=== PATIENT | male | born 1940 | race Caucasian/White ===

== ENCOUNTER 2021-02-07 13:37 | Outpatient (CLI) | payer MEDICARE, SELFPAY ==
--- NOTE | 2021-02-07 14:44 | ECG_ITS ---
Measurements Intervals [place] Rate: 58 P: 57 ME: 204 QRS: -9 QRSD: 164 T: 28 QT: 445 QTc: 439 Interpretive Statements SINUS BRADYCARDIA BORDERLINE AV CONDUCTION DELAY RIGHT BUNDLE BRANCH BLOCK BASELINE ARTIFACT- I, II, III, AVR, AVL, AVF, V4-V6 ABNORMAL ECG Electronically Signed On 02-07-2021 15:00:25 CDT by Janusz Alcazar D.O.
[2021-02-07 16:23] LABS: Anion Gap 6 mmol/L (8-16); Blood Urea Nitrogen 39 mg/dL (9-20); Carbon Dioxide 31 mmol/L (22-30); Chloride 105 mmol/L (98-107); Estimated Glomerular Filt Rate 53; Glucose 114 mg/dL (75-110); Potassium 4.1 mmol/L (3.4-5.0); Sodium 142 mmol/L (137-145)
== END 2021-02-07 13:38 | disposition home or self-care (01) ==
PROVIDERS: Anesthesiology; Visit Provider Urology
DX: Z79.899 Other long term (current) drug therapy (principal); I10 Essential (primary) hypertension; Z01.818 Encounter for other preprocedural examination; I45.9 Conduction disorder, unspecified; I45.10 Unspecified right bundle-branch block
CPT/HCPCS: 36415; 80048; 93005

== ENCOUNTER → 2021-02-08 00:26 | Outpatient (CLI) | payer MEDICARE, SELFPAY ==
[2021-02-08 16:23] LABS: SARS-CoV-2 RNA PCR Negative
== END ==
PROVIDERS: Visit Provider Urology
DX: Z01.812 Encounter for preprocedural laboratory examination (principal); Z20.822 Contact with and (suspected) exposure to COVID-19
CPT/HCPCS: C9803; U0003; U0005

== ENCOUNTER 2021-02-09 02:19 | Day surgery (SDC) | payer MEDICARE, SELFPAY ==
[2021-02-07 14:04] VITALS: BMI 23.8
[2021-02-09] VITALS (10 sets, daily range): BP systolic 133–180; BP diastolic 50–92; PULSE 53–87; RESP 12–19; TEMP 36.1–36.2; O2SAT 53–100
--- NOTE | ~2021-02-09 | XR_ITS ---
EXAMINATION: XR retrograde pyelogram BI EXAM DATE: 02/09/2021 12:33 INDICATION: Bilateral retrograde pyelogram. Hydronephrosis. TECHNIQUE: Fluoroscopy used during XR retrograde pyelogram BI performed by Dr. Rg Wall MD . Total fluoroscopic time of 0.3 minutes. A total of 88 images obtained for the exam. The DAP for this procedure was 405 radcm2. Cine run(s) available for review. FINDINGS: The left ureter was cannulated 1st, injected. There is moderate left-sided hydroureteronep hrosis. No focal left ureteral strictures. Right ureter then cannulated and injected, ureter and jennifer l collecting system was unremarkable. Correlate with procedure note. IMPRESSION: Moderate left hydroureteronephrosis. Reviewed, dictated and finalized at location A.
--- NOTE | 2021-02-09 06:56 | PM.IMHP ---
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 Surveillance cystoscopy a couple days ago revealed 2 small papillary recurrences. Chief Complaint: Bladder tumor Review of Systems Cardiovascular: Cardiovascular: Denies chest pain, Denies lightheadedness, Denies palpitations and Denies dyspnea Respiratory: Respiratory: Denies dyspnea Gastrointestinal: Gastrointestinal: Denies diarrhea, Denies nausea and Denies vomiting Genitourinary: Genitourinary: Denies hematuria and Denies dysuria Endocrine: Endocrine: Denies palpitations COUNTS INCLUDE 234 BEDS AT THE [facility] Social History Social History Smoking packs per day: 1 Smoking cigarettes per day: 20.0 Years smoked: 15 Smoking pack-years: 15.00 Smoking status: Former smoker Tobacco type: cigarettes Smoking end date: 05/11/70 Alcohol intake: current Drinks per week: 7 Substance use: never Living arrangements: with family Additional living arrangements comments: Spiritual care concerns: No Meds Home Medications and Allergies Home Medications Medication Instructions Recorded Confirmed Type amlodipine-benazepril 1 cap PO QAM 02/07/21 02/07/21 History finasteride 5 mg PO DAILY 02/07/21 02/07/21 History hydrochlorothiazide 25 mg PO QAM 02/07/21 02/07/21 History sertraline 100 mg PO QAM 02/07/21 02/07/21 History Allergies Allergy/AdvReac Type Severity Reaction Status Date / Time propoxyphene Allergy Unknown HALLUCINATI Verified 02/07/21 13:58 ONS tramadol Allergy Unknown NAUSEA AND Verified 02/07/21 13:58 VOMITING codeine AdvReac Mild NAUSEA AND Verified 02/07/21 13:58 VOMITING Exam Const: General: no acute distress Resp: Effort & Inspection: normal respiratory effort GI: Inspection: non-distended GI Palp: No abdominal tenderness and No Guarding due to palpation present (GI) Auscultation: normal bowel sounds Assessment and Plan Assessment and plan (1) Bladder tumor: Code(s): D49.4 - Neoplasm of unspecified behavior of bladder Status: Acute Assessment and Plan: Cystoscopy with bilateral retrograde pyelography, TURBT Mitomycin-C bladder installation
--- NOTE | 2021-02-09 06:58 | WPDHPUPDATE1 ---
History and Physical Update Update Date/Time: 02/09/21 06:58 History and Physical has been reviewed, including an updated exam of the patient. There are NO changes in the patient's condition. Risks, benefits, and alternatives have been discussed and questions answered. Patient agrees to proceed with procedure.
[2021-02-09] MEDS: LACTATED RINGERS 1,000 ML 30 ML IV CONT ×2 (09:37→12:35)
--- NOTE | 2021-02-09 10:15 | WPDANESEPPF ---
Anes - Initial Pre Proc Eval Procedure: Operation Date: 02/09/21 11:00 Proposed Procedures p Trans Urethral Resection Bladder Tumor with Mitomycin C Instillation - Rg Wall MD s Cystoscopy, Bilateral Retrograde Pyelograms - Rg Wall MD Date/Time: 02/09/21 10:15 Surgeon: Rg Wall MD Pre Op Diagnosis: hx bladder CA, bladder tumors Patient Data Age: 80 Gender: M Height: 5 ft 8.5 in Weight: 70.8 kg Last Vital Signs Temp 97.1 F L 02/09/21 10:11 Pulse 53 L 02/09/21 10:11 Resp 18 02/09/21 10:11 BP 138/50 L 02/09/21 10:11 Pulse Ox 53 L 02/09/21 10:11 Allergies Allergy/AdvReac Type Severity Reaction Status Date / Time propoxyphene Allergy Unknown HALLUCINATI Verified 02/09/21 10:06 ONS tramadol Allergy Unknown NAUSEA AND Verified 02/09/21 10:06 VOMITING codeine AdvReac Mild NAUSEA AND Verified 02/09/21 10:06 VOMITING Home Medications Medication Instructions Recorded Confirmed Type amlodipine-benazepril 1 cap PO QAM 02/07/21 02/09/21 History finasteride 5 mg PO DAILY 02/07/21 02/09/21 History hydrochlorothiazide 25 mg PO QAM 02/07/21 02/09/21 History sertraline 100 mg PO QAM 02/07/21 02/09/21 History Patient hx anesthesia problems: none Family hx anesthesia problems: none [facility] Past Medical History Medical History (Updated 02/09/21 @ 10:15 by Jaiden Delgado MD) Hyperlipidemia Hypertension ISMAEL (obstructive sleep apnea) Social History Social History Smoking packs per day: 1 Smoking cigarettes per day: 20.0 Years smoked: 15 Smoking pack-years: 15.00 Smoking status: Former smoker Tobacco type: cigarettes Smoking end date: 05/11/70 Alcohol intake: current Drinks per week: 7 Substance use: never Living arrangements: with family Additional living arrangements comments: Spiritual care concerns: No Anes - Eval Final PreProcedure Day of Procedure 02/09/21 10:15 Patient weight: normal Heart: regular rate and rhythm Lungs: clear to auscultation Airway: Mallampati scale class II Neurological: alert and oriented Last oral intake: >/= 8 hours ASA classification: III Emergent: no Anesthetic plan: proceed Anesthesia type and monitoring: general LMA and standard monitoring Informed Consent: The patient's anesthetic plan and its attendant risks and benefits were discussed with the patient/family/POA. Questions were solicited and answers provided to the satisfaction of the patient/family/POA.
[2021-02-09] MEDS: ceFAZolin 2 GM/D5W 50 ML 2 GM/50 ML BAG IVPB (11:55)
[2021-02-09] MEDS: LIDOCAINE HCL 2% GEL UROJET 10 ML PKG MUCOUS MEM (12:11)
--- NOTE | 2021-02-09 12:35 | PM.PROC ---
Procedure Note - Detailed Date of procedure: 02/09/21 Pre-op diagnosis: bladder tumors Post-op diagnosis: same Procedure performed: 1. TURBT (medium) 2. Cysto., bilateral RPG Description of procedure: Patient brought to the office where he has prepped and draped in routine sterile fashion while in dorsal lithotomy position after the uneventful induction of a general LMA anesthetic. 2% xylocaine jelly was introduced intraurethrally. Twenty-four F resectoscope was placed in his bladder. He has 2 collections of papillary neoplasm 1 in the right posterior lateral wall and another in the midline posterior wall. These were resected in their entirety with an attempt made to include detrusor muscle for pathological evaluation of invasion. The base and periphery of cauterized with the rollerball. I then replaced the resectoscope with a 22 F cystoscope. Eight F bulb tip catheter was used to obtain bilateral retrograde pyelograms. There is no apparent filling defects or points of obstruction on either side. Cystoscope was removed and an 18 F urethral catheter was placed to drainage. Patient tolerates procedure well was taken recovery in good condition Anesthesia: GLMA Surgeon: Rg Wall MD Lotus Notes Developer: None Drains: Yes (18F Rojo) Packing: No Pathology: yes Complications: No immediate complications Condition: stable Disposition: PACU
--- NOTE | 2021-02-09 12:38 | PM.PROC ---
Procedure Note - Detailed Date of procedure: 02/09/21 Pre-op diagnosis: bladder tumors Post-op diagnosis: same Procedure performed: Mitomycin-C installation Description of procedure: With the patient in the supine position, a 16F Rojo catheter is placed using sterile technique. Using a protective facemask, gown and double layer of gloves Gemcitabine 2gm in 100cc saline is administered through the catheter/into the bladder. The catheter is then plugged. Patient was instructed to lie supine x20min, then to roll both the left and right x20 min. each. Total dwell time will be 60 min., after which the bladder will be drained and catheter removed. Surgeon: Rg Wall MD Estimated blood loss (mL): 0 Drains: No Packing: Yes Pathology: yes Complications: No immediate complications Condition: stable Disposition: PACU
[2021-02-09] MEDS: fentaNYL CITRATE INJ (*CRX) 100 MCG/2 ML VIAL 25 MCG IV PUSH ×8 (12:39→13:32)
[2021-02-09] MEDS: ONDANSETRON INJ 4 MG/2 ML VIAL IV PUSH (14:26)
--- NOTE | 2021-02-09 14:38 | SUR.PHASEII ---
DR. FOUNTAIN CAME TO SEE PT. ORDERED TO KEEP WHITMORE INTACT UNTIL THE AM.
[2021-02-09] MEDS: HYOSCYAMINE SULFATE 0.125 MG TABLET PO (15:13)
[2021-02-09] MEDS: ONDANSETRON HCL ODT 4 MG TABLET PO (15:42)
== END 2021-02-09 15:42 | disposition home or self-care (01) ==
PROVIDERS: Visit Provider Urology
PROC: 0TBB8ZZ Excision of Bladder, Via Natural or Artificial Opening Endoscopic (ICD-10-PCS; CPT 51720; principal; 2021-02-09 11:00)
PROC: (CPT 52352; 2021-02-09 11:00)
DX: C67.2 Malignant neoplasm of lateral wall of bladder (principal); C67.4 Malignant neoplasm of posterior wall of bladder; I10 Essential (primary) hypertension; E78.5 Hyperlipidemia, unspecified; G47.33 Obstructive sleep apnea (adult) (pediatric); Z87.891 Personal history of nicotine dependence
CPT/HCPCS: 51720; 52235; 74420; 88305; A9270; C1758; C1769; J0690; J1100; J2405; J2704; J3010; J7120; J9280; Q9966